=== PATIENT | male | born 1965 | race Caucasian/White ===

== ENCOUNTER 2023-04-12 07:25 | Day surgery (SDC) | payer MEDICAID ==
[~2023-04-12] VITALS: Ht 180.3 cm; Wt 88.5 kg
[2023-04-12 10:00] VITALS: O2SAT 98
[2023-04-12] MEDS ORDERED: MEPERIDINE 100 MG INJ. 100 MG/ML VIAL ONE (10:03)
[2023-04-12] MEDS ORDERED: MIDAZOLAM HCL 5 MG/5 ML VIAL ONE (10:03)
[2023-04-12 16:22] VITALS: BP_SYST 112; PULSE 73; RESP 11
== END 2023-04-12 11:45 | disposition home or self-care (01) ==
LOC: SDS 07:25 → SMU 07:27 → SDS 11:45
PROVIDERS: ATTEND Internal Medicine Gastroenterology
DX: Z12.11 Encounter for screening for malignant neoplasm of colon (principal); D12.5 Benign neoplasm of sigmoid colon; K21.9 Gastro-esophageal reflux disease without esophagitis; K57.30 Diverticulosis of large intestine without perforation or abscess without bleeding; K64.9 Unspecified hemorrhoids; I10 Essential (primary) hypertension; E78.5 Hyperlipidemia, unspecified; Z80.0 Family history of malignant neoplasm of digestive organs; Z79.899 Other long term (current) drug therapy
CPT/HCPCS: 45385; 88305; 99152; G0378; J2250; J2175